=== PATIENT | female | born 1950 | race Caucasian/White ===

== ENCOUNTER 2019-10-12 04:32 | Emergency (ER) | payer MEDICARE ==
[~2019-10-12] VITALS: Ht 162.6 cm; Wt 50.0 kg
--- NOTE | 2019-10-12 04:55 | NUR ---
THIS IS A 69Y F THAT COMES IN W/ C/O HOMICIDAL THOUGHTS PT DENIES SI. PT REPORTS SHE WAS TAKING LITHIUM UNTIL 2 YRS AGO WHEN SHE STOPPED TO TAKE THYROID MEDICATIONS. PT STS FOR THE PAST WEEK SHE HAS HAD INCREASING HALLUCINATIONS BOTH VISUAL AND AUDITIORY. PT LIVES AT HOME WITH HER SON AND STS SHE HAS BEEN STAYING UP FOR DAYS AT A TIME AND HAS BEEN UNABLE TO SLEEP. PT REPORTS HEARING VOICES TELLING HER TO KILL HER SON. PT DOES NOT HAVE A PLAN ON HOW TO DO THIS. PT PLACED IN SECURE ROOM, BELONGINGS LABELED AND PLACED IN LOCKER. PT EDUCATED ON NEED FOR URINE SAMPLE PT STS SHE WILL NEED SOME WATER TO PRODUCE A URINE SAMPLE.
--- NOTE | 2019-10-12 05:21 | NUR ---
PT UP TO RESTROOM FOR URINE SAMPLE AT THIS TIME
[2019-10-12 05:39] LABS: CULTURE INDICATED? YES
[2019-10-12 05:40] LABS: MICROSCOPIC INDICATED
[2019-10-12 05:46] LABS: BASOPHILS # (AUTO) 0.02 x10^3/uL (0-0.1); BASOPHILS % (AUTO) 0 % (0-1); EOSINOPHILS # (AUTO) 0.02 x10^3/uL (0-0.4); EOSINOPHILS % (AUTO) 0 % (1-7); LYMPHOCYTES # (AUTO) 1.51 x10^3/uL (1-3.4); LYMPHOCYTES % (AUTO) 14 % (22-44); MD NO; MEAN CORPUSCULAR HEMOGLOBIN 33.5 pg (27.0-34.8); MEAN CORPUSCULAR HGB CONC 33.5 g/dL (32.4-35.8); MEAN CORPUSCULAR VOLUME 100.2 fL (80-100); MEAN PLATELET VOLUME 8.6 fL (7.4-10.4); MONOCYTES # (AUTO) 0.58 x10^3/uL (0.2-0.8); MONOCYTES % (AUTO) 5 % (2-9); NEUTROPHILS # (AUTO) 8.96 x10^3/uL (1.8-6.8); NEUTROPHILS % (AUTO) 81 % (42-75); PLATELET COUNT 261 x10^3/uL (130-400); RED BLOOD COUNT 4.44 x10^6/uL (3.82-5.3); RED CELL DISTRIBUTION WIDTH 13.8 % (9.6-15.2)
[2019-10-12 05:49] LABS: AMPHETAMINE SCREEN, URINE Negative (Negative); BARBITURATE SCREEN, URINE Negative (Negative); BENZODIAZEPINE SCREEN, URINE Negative (Negative); CANNABINOID SCREEN, URINE Negative (Negative); COCAINE SCREEN, URINE Negative (Negative); METHADONE SCREEN, URINE Negative (Negative); OPIATE SCREEN, URINE Negative (Negative)
[2019-10-12 05:54] LABS: ALBUMIN 4.4 g/dL (3.4-5.0); ANION GAP 7 mmol/L (5-15); CALCIUM 9.1 mg/dL (8.5-10.1); CHLORIDE 108 mmol/L (98-107)
--- NOTE | 2019-10-12 06:01 | NUR ---
PT RESTING ON GURNEY, RESP EVEN AND UNLABORED. JULIA.
[2019-10-12 06:04] LABS: ALANINE AMINOTRANSFERASE 20 U/L (12-78); ALKALINE PHOSPHATASE 147 U/L (45-117); BILIRUBIN,TOTAL 0.4 mg/dL (0.2-1.0); CREATININE 0.65 mg/dL (0.55-1.02); TOTAL PROTEIN 7.6 g/dL (6.4-8.2)
[2019-10-12 06:20] LABS: SALICYLATE LEVEL < 1.7 mg/dL (2.8-20.0)
--- NOTE | 2019-10-12 07:09 | NUR ---
RECEIVED REPORT FROM ADILSON ARANA RN. PT SLEEPING ON USMAN. NADN. CHAMPAGNETER REMAINS AT BEDSIDE. ROOM REMAINS SECURE.
[2019-10-12 08:13] VITALS: BP 143/80
--- NOTE | 2019-10-12 08:13 | NUR ---
PT RESTING ON USMAN. JULIA. VSS. SITTER REMAINS AT BEDSIDE. ROOM REMAINS SECURE.
--- NOTE | 2019-10-12 09:18 | NUR ---
PT SLEEPING ON GUCHRISTINA. JULIA. VSS. SITTER REMAINS AT BEDSIDE. ROOM REMAINS AT BEDSIDE.
--- NOTE | 2019-10-12 09:27 | NUR ---
PT MOVED FROM [facility] TO [facility] BED.
--- NOTE | 2019-10-12 10:22 | NUR ---
PT RESTING IN BED. NADN. SITTER REMAINS AT BEDSIDE. ROOM REMAINS SECURE.
--- NOTE | 2019-10-12 11:24 | NUR ---
PT RESTING IN BED. NADN. SITTER REMAINS AT BEDSIDE. ROOM REMAINS SECURE.
--- NOTE | 2019-10-12 12:02 | NUR ---
KARINA, PSYCH TRANSMISSION TECHNICIAN AT BEDSIDE.
[2019-10-12] MEDS ORDERED: OLANZAPINE 5 MG TABLET PO SCH (12:30)
[2019-10-12] MEDS ORDERED: NICOTINE 14MG/24 HR PATCH.TD24 TD PRN (12:30)
[2019-10-12] MEDS ORDERED: CEFDINIR 300 MG CAPSULE PO ONE (12:30)
--- NOTE | 2019-10-12 12:41 | NUR ---
PT RESTING ON GURNEY. NADN. BENNETT.
--- NOTE | 2019-10-12 13:30 | NUR ---
PT RESTING ON USMAN. JULIA. SITTER REMAINS AT BEDSIDE. ROOM REMAINS SECURE.
[2019-10-12] MEDS ORDERED: OLANZAPINE 5 MG TABLET ONE (14:08)
[2019-10-12] MEDS ORDERED: CEFDINIR 300 MG CAPSULE ONE (14:08)
--- NOTE | 2019-10-12 14:26 | NUR ---
PT RESTING ON USMAN. JULIA. SITTER REMAINS AT BEDSIDE. ROOM REMAINS SECURE.
--- NOTE | 2019-10-12 14:27 | NUR ---
THROUGHPUT: [facility] IS PENDING ADMISSION
[2019-10-12] MEDS ORDERED: NAPR250T6 PO (15:37)
[2019-10-12] MEDS ORDERED: METH10TA6 PO (15:37)
== END 2019-10-12 15:24 ==
LOC: ED 08:49
DX: F06.2 Psychotic disorder with delusions due to known physiological condition (principal); N30.00 Acute cystitis without hematuria; F20.9 Schizophrenia, unspecified; R45.850 Homicidal ideations; F31.9 Bipolar disorder, unspecified; E03.9 Hypothyroidism, unspecified
CPT/HCPCS: 36415; 80053; 80307; 81001; 84436; 84443; 85025; 87077; 87086; 87186; 99285

== ENCOUNTER 2020-02-19 13:19 | Emergency (ER) | payer MEDICARE ==
[~2020-02-19] VITALS: Ht 165.1 cm; Wt 68.0 kg
[~2020-02-19 13:19] MED LIST: ASPI81TA45 PO; METH10TA6 PO; NAPR250T6 PO; OLAN5TAB9 PO
[2020-02-19 13:28] VITALS: BP 139/69
--- NOTE | 2020-02-19 13:50 | NUR ---
pt presents to ED, brought by ambulance from home stating she feels as though she is having a psychotic break. pt denies si/hi. pt states "I have chronic mental illness, its worse than usual today." pt a&o, resps even and unlabored, placed on bp and spo2 monitors. call light in reach. psychiatric BREANN Zaldivar at bedside for eval.
[2020-02-19 14:12] LABS: BASOPHILS # (AUTO) 0.05 x10^3/uL (0-0.1); BASOPHILS % (AUTO) 1 % (0-1); EOSINOPHILS # (AUTO) 0.02 x10^3/uL (0-0.4); EOSINOPHILS % (AUTO) 0 % (1-7); LYMPHOCYTES # (AUTO) 1.79 x10^3/uL (1-3.4); LYMPHOCYTES % (AUTO) 19 % (22-44); MD NO; MEAN CORPUSCULAR HEMOGLOBIN 32.8 pg (27.0-34.8); MEAN CORPUSCULAR HGB CONC 32.5 g/dL (32.4-35.8); MEAN PLATELET VOLUME 8.1 fL (7.4-10.4); MONOCYTES # (AUTO) 0.27 x10^3/uL (0.2-0.8); MONOCYTES % (AUTO) 3 % (2-9); NEUTROPHILS # (AUTO) 7.45 x10^3/uL (1.8-6.8); NEUTROPHILS % (AUTO) 78 % (42-75); PLATELET COUNT 300 x10^3/uL (130-400); RED BLOOD COUNT 4.42 x10^6/uL (3.82-5.3)
--- NOTE | 2020-02-19 14:14 | NUR ---
SUPPLIES PROVIDED AT BEDSIDE FOR URINE SAMPLE. PT CONVERSING WITH BREANN COLLINS AT THIS TIME.
[2020-02-19 14:23] LABS: ALBUMIN 4.2 g/dL (3.4-5.0); ANION GAP 6 mmol/L (5-15); CALCIUM 9.3 mg/dL (8.5-10.1); CHLORIDE 104 mmol/L (98-107)
[2020-02-19 14:32] LABS: ALANINE AMINOTRANSFERASE 29 U/L (12-78); ALKALINE PHOSPHATASE 115 U/L (45-117); BILIRUBIN,TOTAL 0.5 mg/dL (0.2-1.0); CREATININE 0.74 mg/dL (0.55-1.02); TOTAL PROTEIN 8.1 g/dL (6.4-8.2)
[2020-02-19 14:33] LABS: SALICYLATE LEVEL < 1.7 mg/dL (2.8-20.0)
--- NOTE | 2020-02-19 14:36 | NUR ---
psychiatric consult complete, pt up to bathroom to provide urine sample at this time, gait steady.
--- NOTE | 2020-02-19 14:47 | NUR ---
REPORT RECEIVED FROM THEODORE MATAMOROS. PLAN OF CARE DISCUSSED. UA COLLECTED AND SENT
--- NOTE | 2020-02-19 14:52 | NUR ---
REPORT GIVEN TO THEODORE AARON WHO IS ASSUMING CARE AT THIS TIME.
--- NOTE | 2020-02-19 15:10 | NUR ---
REPORT GIVEN TO THEODORE GEORGE AT [facility], THEY ARE ACCEPTING THE PATIENT. THEODORE GEORGE STATES THEY WILL CALL BACK WITH A ROOM NUMBER
[2020-02-19 15:17] LABS: AMPHETAMINE SCREEN, URINE Negative (Negative); BARBITURATE SCREEN, URINE Negative (Negative); BENZODIAZEPINE SCREEN, URINE Negative (Negative); CANNABINOID SCREEN, URINE Negative (Negative); COCAINE SCREEN, URINE Negative (Negative); METHADONE SCREEN, URINE Negative (Negative); OPIATE SCREEN, URINE Negative (Negative)
[2020-02-19] MEDS ORDERED: ALBU18HF INH (16:43)
== END 2020-02-19 15:51 ==
LOC: ED 15:37
DX: F23 Brief psychotic disorder (principal); F17.200 Nicotine dependence, unspecified, uncomplicated; E03.9 Hypothyroidism, unspecified; R45.850 Homicidal ideations
CPT/HCPCS: 36415; 80053; 80307; 85025; 99285

== ENCOUNTER 2020-02-19 15:18 | Inpatient (IN) | payer MEDICARE ==
[~2020-02-19] VITALS: Ht 165.1 cm; Wt 69.3 kg
[2020-02-19] MEDS ORDERED: POLYETHYLENE GLYCOL 17 GM PACKET PO PRN (15:30)
[2020-02-19] MEDS ORDERED: ONDANSETRON ODT 4 MG PO PRN (15:30)
[2020-02-19] MEDS ORDERED: DOCUSATE 100 MG CAPSULE PO PRN (15:30)
[2020-02-19] MEDS ORDERED: ALBU18HF INH (16:43)
[2020-02-19 16:52] VITALS: BP 128/80
[2020-02-19] MEDS ORDERED: ALBUTEROL SULFATE 2.5 MG/3 ML NPPB PRN (17:00)
[2020-02-19 17:30] LABS: MICROSCOPIC NOT IND
[2020-02-19 18:13] LABS: FREE T4 (FREE THYROXINE) 1.67 ng/dL (0.76-1.46)
[2020-02-19 19:51] VITALS: BP 144/78
[2020-02-19] MEDS ORDERED: OLANZAPINE 5 MG TABLET PO SCH (21:00)
[2020-02-19] MEDS: NICOTINE GUM 2 MG BC PRN (21:17)
[2020-02-20] MEDS: ACETAMINOPHEN 325 MG TABLET PO PRN ×2 (03:45→18:02)
[2020-02-20] MEDS: ASPIRIN 81 MG TABLET EC PO SCH (05:35)
[2020-02-20] MEDS ORDERED: ASPIRIN 81 MG TABLET EC PO SCH (06:00)
[2020-02-20 07:38] VITALS: BP 132/82
[2020-02-20] MEDS: METHIMAZOLE 5 MG TAB PO SCH (08:38)
[2020-02-20] MEDS ORDERED: METHIMAZOLE 5 MG TAB PO SCH (09:00)
[2020-02-20] MEDS: NICOTINE GUM 2 MG BC PRN ×2 (14:54→21:51)
[2020-02-20] MEDS ORDERED: LORazepam 0.5MG TABLET PO PRN (15:00)
[2020-02-20 19:51] VITALS: BP 113/67
[2020-02-20] MEDS: ZIPRASIDONE 20MG CAPSULE PO SCH (20:25)
[2020-02-21] MEDS: ACETAMINOPHEN 325 MG TABLET PO PRN (03:58)
[2020-02-21] MEDS: ASPIRIN 81 MG TABLET EC PO SCH (05:43)
[2020-02-21] MEDS: NICOTINE GUM 2 MG BC PRN ×3 (06:04→14:39)
[2020-02-21 07:00] VITALS: BP 171/77
[2020-02-21] MEDS: METHIMAZOLE 5 MG TAB PO SCH (08:22)
[2020-02-21 19:15] VITALS: BP 114/73
[2020-02-21] MEDS: ZIPRASIDONE 20MG CAPSULE PO SCH (20:18)
[2020-02-22] MEDS: ASPIRIN 81 MG TABLET EC PO SCH (05:59)
[2020-02-22 07:44] VITALS: BP 131/79
[2020-02-22] MEDS: METHIMAZOLE 5 MG TAB PO SCH (08:07)
[2020-02-22] MEDS: NICOTINE GUM 2 MG BC PRN (15:02)
[2020-02-22 19:12] VITALS: BP 126/77
[2020-02-22] MEDS: IBUPROFEN 600 MG TABLET PO PRN (20:39)
[2020-02-22] MEDS: ZIPRASIDONE 20MG CAPSULE PO SCH (20:40)
[2020-02-23] MEDS: ASPIRIN 81 MG TABLET EC PO SCH (05:51)
[2020-02-23] MEDS: NICOTINE GUM 2 MG BC PRN ×2 (05:53→23:34)
[2020-02-23 07:30] VITALS: BP 113/70
[2020-02-23] MEDS: METHIMAZOLE 5 MG TAB PO SCH (08:20)
[2020-02-23] MEDS: IBUPROFEN 600 MG TABLET PO PRN ×2 (08:20→20:17)
[2020-02-23] MEDS ORDERED: METH5TAB6 PO (10:18)
[2020-02-23] MEDS ORDERED: ZIPR20CA2 PO (10:18)
[2020-02-23 19:24] VITALS: BP 118/71
[2020-02-23] MEDS: ZIPRASIDONE 20MG CAPSULE PO SCH (20:17)
[2020-02-24 07:33] VITALS: BP 117/62
[2020-02-24] MEDS: ASPIRIN 81 MG TABLET EC PO SCH (08:20)
[2020-02-24] MEDS: METHIMAZOLE 5 MG TAB PO SCH (08:20)
[2020-02-24] MEDS: ACETAMINOPHEN 325 MG TABLET PO PRN (08:32)
[2020-02-24] MEDS: NICOTINE GUM 2 MG BC PRN (10:44)
== END 2020-02-24 13:30 | disposition home or self-care (01) | DRG 885 ==
LOC: 3E 15:51
PROVIDERS: ADMIT Psychiatry & Neurology Psychosomatic Medicine; ATTEND Psychiatry & Neurology Psychosomatic Medicine
DX: F31.30 Bipolar disorder, current episode depressed, mild or moderate severity, unspecified (principal); E03.9 Hypothyroidism, unspecified; F17.210 Nicotine dependence, cigarettes, uncomplicated; I25.10 Atherosclerotic heart disease of native coronary artery without angina pectoris; M19.90 Unspecified osteoarthritis, unspecified site; M06.9 Rheumatoid arthritis, unspecified; J45.909 Unspecified asthma, uncomplicated; F41.9 Anxiety disorder, unspecified; B19.20 Unspecified viral hepatitis C without hepatic coma; Z80.9 Family history of malignant neoplasm, unspecified; Z79.82 Long term (current) use of aspirin; Z91.14 Patient's other noncompliance with medication regimen; Z88.0 Allergy status to penicillin; Z88.1 Allergy status to other antibiotic agents
CPT/HCPCS: 36415; 81003; 84439; 84443; 84481; 93005